=== PATIENT | male | born 1985 | race Caucasian/White ===

== ENCOUNTER → 2017-03-05 | Outpatient (CLI) | payer OTHER | LOC: BRMIMAGING 12:59 | PROVIDERS: ATTEND Internal Medicine | DX: M46.90 Unspecified inflammatory spondylopathy, site unspecified (principal) | CPT/HCPCS: 72202-PO ==

== ENCOUNTER → 2017-07-28 | Outpatient (CLI) | payer OTHER | LOC: CIMAGING 11:37 | PROVIDERS: ATTEND Family Medicine | DX: J40 Bronchitis, not specified as acute or chronic (principal) | CPT/HCPCS: 71046-PO ==